=== PATIENT | male | born 1995 | race African-American/Black ===

== ENCOUNTER 2020-07-11 11:24 | Emergency (ER) | payer OTHER, SELFPAY ==
[2020-07-11 11:28] VITALS: BP 143/72; PULSE 80; RESP 18; TEMP 36.6; O2SAT 100
[2020-07-11 11:51] LABS: Basophils Absolute Auto 0.1 K/mm3 (0.0-0.1); Basophils Percent Auto 0.5 % (0.2-1.2); Eosinophils Absolute Auto 0.1 K/mm3 (0-0.3); Eosinophils Percent Auto 0.6 % (0-4.4); Hematocrit 50.8 % (42.0-52.0); Hemoglobin 16.5 g/dL (14.0-18.0); Immature Granulocyte Absolute 0.04 K/mm3 (0.00-0.031); Immature Granulocyte Percent A 0.4 % (0-0.5); Lymphocytes Absolute Auto 1.66 K/mm3 (0.9-3.2); Lymphocytes Percent Auto 17.5 % (18.3-44.2); Mean Corpuscular HGB Conc 32.5 g/dl (32-36); Mean Corpuscular Hemoglobin 27.3 pg (26-34); Mean Platelet Volume 11.2 fl (7.4-10.4); Monocytes Absolute Auto 1.1 K/mm3 (0.1-0.6); Monocytes Percent Auto 11.8 % (2.6-8.5); Neutrophils Absolute Auto 6.6 K/mm3 (1.3-6.7); Neutrophils Percent Auto 69.2 % (45.5-73.1); Platelet Count Result 239 k/mm3 (150-375); Red Blood Count 6.05 M/mm3 (4.6-6.20); Red Cell Distribution Width 14.1 % (11.5-14.5); White Blood Count 9.5 K/mm3 (4.5-10.0)
[2020-07-11 12:00] LABS: Prothrombin Time 12.7 Seconds (11.1-14.7)
[2020-07-11 12:01] LABS: Partial Thromboplastin Time 29.9 SECONDS (22.3-36.8)
[2020-07-11 12:04] LABS: Alanine Aminotransferase 43 U/L (4-50); Albumin Level 4.5 g/dL (3.5-5.1); Alkaline Phosphatase 110 U/L (38-126); Anion Gap 10 mmol/L (8-16); Aspartate Amino Transferase 43 U/L (17-59); Bilirubin,Total 0.7 mg/dL (0.2-1.3); Blood Urea Nitrogen 11 mg/dL (9-20); Calcium 9.3 mg/dL (8.4-10.2); Carbon Dioxide 28 mmol/L (22-30); Chloride 101 mmol/L (98-107); Estimated CRCL calculation 131 ml/min; Estimated Glomerular Filt Rate > 60; Glucose 112 mg/dL (75-110); Potassium 3.9 mmol/L (3.4-5.0); Sodium 139 mmol/L (137-145)
--- NOTE | 2020-07-11 12:31 | ED.GENADULT ---
HPI - General Adult General Chief complaint: GI Bleed Stated complaint: rectal bleeding Time Seen by Provider: 07/11/20 12:09 Source: patient History of Present Illness HPI narrative: Patient is a 25 y/o male complaining of rectal bleeding for last 3 days. His bleeding consists of bright red blood. He states that the bleeding is severe and seems to be aggravated by bowel movement. He has minimal rectal pain. He has no abdominal pain, vomiting, weakness or dizziness. He was seen at his PCP's office earlier today and directed to ED because active rectal bleed is noted on exam. Related Data Home Medications Medication Instructions Recorded Confirmed No Home Medications 07/11/20 07/11/20 Allergies Allergy/AdvReac Type Severity Reaction Status Date / Time cat dander Allergy Difficulty Verified 07/11/20 11:31 Breathing mushroom Allergy Swelling Verified 07/11/20 11:31 Review of Systems Constitutional: Constitutional: Denies chills, Denies fever(s), Denies headache(s) and Denies weakness Eyes: Eyes: Denies blurry vision ENT: Denies headache(s) and Denies neck pain Cardiovascular: Cardiovascular: Denies chest pain and Denies dyspnea Respiratory: Respiratory: Denies cough and Denies dyspnea Gastrointestinal: Gastrointestinal: Denies abdominal pain, Reports hematochezia, Denies diarrhea, Denies nausea and Denies vomiting Genitourinary: Genitourinary: Denies hematuria and Denies dysuria Musculoskeletal: Musculoskeletal: Denies back pain and Denies neck pain Neurologic: Denies headache(s) and Denies weakness PMFSH Social History Social History Smoking status: Never smoker Gender identity (if verbalized by the patient): Male Exam Const: General: no acute distress and well developed Orientation/consciousness: oriented to person, oriented to place, oriented to time and patient oriented x3 HENMT: Head: normocephalic Ears: external ears normal General nose exam: Normal external nose present Eyes: General: appearance normal, both eyes and all related structures Conjunctivae: conjunctivae normal Neck: Neck: normal visual inspection and full ROM Chest: Chest palpation & inspection: normal inspection of the chest and no tenderness Resp: Effort & Inspection: normal respiratory effort Auscultation: clear to auscultation bilaterally Cardio: Rate: regular rate Rhythm: regular rhythm GI: GI Palp: No abdominal tenderness and Yes Soft to palpation Rectal Exam: No mass and other Other: bright red blood noted Skin: General skin exam: normal color and turgor normal Neuro: General: oriented to person, oriented to place, oriented to time and patient oriented x3 Cognition (Neuro): normal cognition Extrem: General: normal to inspection, full ROM and no pedal edema Psych: Appearance: grossly normal Mental Status: mental status grossly normal Affect: normal affect Course Consultations Consultation #1: Discussed with Dr. So, who recommends discharge and he will follow up with patient and arrange for outpatient colonoscopy. Date: 07/11/20 Time: 12:30 Vital Signs Vital signs: Vital Signs Temperature 36.6 C 07/11/20 11:28 Pulse Rate 80 07/11/20 11:28 Respiratory Rate 18 07/11/20 11:28 Blood Pressure 143/72 H 07/11/20 11:28 Pulse Oximetry 100 07/11/20 11:28 Temperature 36.6 C 07/11/20 11:28 Pulse Rate 78 07/11/20 13:07 Respiratory Rate 18 07/11/20 13:07 Blood Pressure 142/78 H 07/11/20 13:07 Pulse Oximetry 99 07/11/20 13:07 Medical Decision Making Vital Signs Vital Signs: Vital Signs Temperature 36.6 C 07/11/20 11:28 Pulse Rate 80 07/11/20 11:28 Respiratory Rate 18 07/11/20 11:28 Blood Pressure 143/72 H 07/11/20 11:28 Pulse Oximetry 100 07/11/20 11:28 Temperature 36.6 C 07/11/20 11:28 Pulse Rate 78 07/11/20 13:07 Respiratory Rate 18 07/11/20 13:07 Blood Pressure 142/78 H
[2020-07-11 13:07] VITALS: BP 142/78; PULSE 78; RESP 18; O2SAT 99
== END 2020-07-11 13:09 | disposition home or self-care (01) ==
PROVIDERS: Emergency Medicine; Emergency Provider Emergency Medicine; PCP Emergency Medicine
DX: K62.5 Hemorrhage of anus and rectum (principal)
CPT/HCPCS: 36415; 80053; 85025; 85610; 85730; 86850; 86900; 86901; 99283

== ENCOUNTER 2022-02-13 11:25 | Outpatient (CLI) | payer OTHER, SELFPAY ==
--- NOTE | ~2022-02-13 | XR_ITS ---
EXAM: XR foot LT min 3V HISTORY: LT POSTERIOR HEEL PAIN, CHRONIC, ESPECIALLY WHEN RUNNING . COMPARISON: None available. FINDINGS: Normal mineralization. No fracture or dislocation. No lytic or blastic lesion. Moderate azevedo llux valgus. Mild degenerative change at the first MTP. Achilles and plantar enthesopathy. No erosion or periosteal change. Soft tissues within normal limits. IMPRESSION: No acute osseous finding in the left foot. Reviewed, dictated and finalized at location K.
== END 2022-02-13 11:26 | disposition home or self-care (01) ==
PROVIDERS: PCP Emergency Medicine; Visit Provider Emergency Medicine
DX: M25.572 Pain in left ankle and joints of left foot (principal); M19.072 Primary osteoarthritis, left ankle and foot
CPT/HCPCS: 73630

== ENCOUNTER → 2022-09-03 15:59 | Outpatient (CLI) | payer OTHER, SELFPAY ==
--- NOTE | ~2022-09-03 | XR_ITS ---
XR hip BI 2V w AP pelvis DATE: 09/03/2022 16:14 INDICATION: Tingling down right leg from groin for 3 days TECHNIQUE: AP pelvis. AP and lateral views of each hip. COMPARISON: None FINDINGS: No pelvic fracture or bone destruction. Normal alignment at the pubic symphysis and sacroil iac joints. Hip joint spaces are symmetric and well preserved. No fracture, dislocation, avascular ne crosis or bone destruction of either hip. IMPRESSION: Negative Reviewed, dictated and finalized at location B. [employer] [employer] IMPRESSION: Negative
== END ==
PROVIDERS: PCP Emergency Medicine; Visit Provider Emergency Medicine
DX: R20.2 Paresthesia of skin (principal)
CPT/HCPCS: 73521

== ENCOUNTER 2023-02-27 09:42 | Outpatient (RCR) | payer OTHER, SELFPAY ==
--- NOTE | 2023-02-27 10:53 | PTOPEVAL1 ---
Assessment and note entered by Caesar Galloway, PT Evaluation Information Assessment Status Evaluation Diagnosis DOLORES achilles tendonitis Onset chronic, but increases with baseball season Subjective Information Patient reports he has been dealing with this issue for a few years now and the back of his foot hurts when doing a quick sprint like after a hit. 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 The patient reports he also got new insoles recommended by doctor. Reported Pain Level Pain Score 0: Self Report Additional Pain Score Comments currently no pain at worst 3/10 Assessment PT Clinical Summary Yobani is a 27 year old male coming into the clinic with a diagnosis of DOLORES Achilles tendonitis. He has decreased ankle range of motion, tightness in his calfs, and weakness in his ankle musculature. Patient is already working on his calf stretches . Gave patient HEP of strengthening exercises. Will see patient in a week for follow-up to make sure nothing is exacerbated with the strengthening . If he is having any issues will pick him up for more visits if not discharge with HEP. Plan of Care Interventions Electrical Stimulation,Gait Training,Hot Pack/Cold Pack,Manual Therapy,Neuro Re-education,Patient/ Caregiver Education,Therapeutic Activities, Therapeutic Exercise,Ultrasound Other Interventions cupping, taping, IASTM. PT Services Indicated Yes Treatment Frequency and 1x/wk for 1 weeks and reassess. Duration These treatments will address the objective and functional deficits as defined above. The patient will be advanced safely and appropriately in order for the patient to progress towards his/her prior level of function. Additional exercises will be introduced and as well as a comprehensive home exercise program upon discharge, if needed, ?to ensure carryover of functional gains achieved in the clinic. This treatment plan has been reviewed and agreement upon by the patient.
--- NOTE | 2023-03-06 14:59 | PCPTNOTE ---
Patient did not show up for scheduled appointment this date. left message to call back if wanting discharged or the re-eval rescheduled.
--- NOTE | 2023-03-07 08:34 | PTOPDC ---
Assessment and note entered by Caesar Galloway, PT Evaluation Information Assessment Status Discharge - Pt Not Presen Diagnosis R ankle pain Onset chronic, but increases with baseball season Subjective Information Patient called the audio visual engineer and told her that his doctor said he could just do his HEP. Assessment PT Clinical Summary Patient discharged from physical therapy per his request which we did talk about after initial evaluation, might be a possibility secondary to no pain and doing well with the exercises his doctor gave him earlier. Plan of Care PT Services Indicated Yes
== END 2023-03-07 09:19 | disposition home or self-care (01) ==
LOC: ANHPT 09:42
PROVIDERS: PCP Emergency Medicine; Visit Provider Podiatrist Foot & Ankle Surgery
DX: M76.61 Achilles tendinitis, right leg (principal); M76.62 Achilles tendinitis, left leg
CPT/HCPCS: 97110; 97161; 99199